=== PATIENT | male | born 1960 | race Caucasian/White ===

== ENCOUNTER 2016-04-07 02:42 | Inpatient (IN) | payer MEDICARE, OTHER ==
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
[2016-04-07] MEDS ORDERED: HYDROmorphone 2 mg/mL 1mL Vial IVP STA (03:34)
[2016-04-07 04:21] LABS: % EOSINOPHILS 2.1 % (0.0-5.0); % LYMPHOCYTES 9.6 % (20.0-50.0); % MONOCYTES 5.4 % (2.0-10.0); % NEUTROPHILS 82.9 % (40.0-80.0); HEMATOCRIT 36.3 % (39.0-49.0); HEMOGLOBIN 11.9 gm/dL (13.2-17.3); MEAN CORPUSCULAR HEMOGLOBIN 28.5 pg (26.0-30.0); MEAN CORPUSCULAR HGB CONC 32.8 pg (28.0-36.0); MEAN PLATELET VOLUME 7.2 fl; NEUTROPHILE ABSOLUTE 9.1 Th/cmm (1.8-8.0); PLATELET COUNT 554 Th/cmm (150-400); RED BLOOD COUNT 4.17 Mil/cmm (4.30-5.70); RED CELL DISTRIBUTION WIDTH 15.4 % (11.5-20.0); WHITE BLOOD COUNT 10.9 Th/cmm (4.8-10.8)
[2016-04-07] MEDS ORDERED: HYDROmorphone 2 mg/mL 1mL Vial ONE (04:44)
[2016-04-07 04:46] LABS: INR 1.08 (0.5-1.4); PROTHROMBIN TIME (TEST) 10.8 SECONDS (9.5-11.5)
[2016-04-07 05:24] LABS: ALB/GLOB RATIO 0.7 (1.0-1.8); ALKALINE PHOSPHATASE 133 U/L (34-104); ANION GAP 11.6 (7.0-16.0); BILIRUBIN,TOTAL 0.3 mg/dL (0.3-1.0); BUN - UREA NITROGEN 17 mg/dL (7-25); BUN/CREATININE RATIO 21.3; CALCIUM SERUM 8.9 mg/dL (8.6-10.3); CARBON DIOXIDE 16.6 mEq/L (21.0-31.0); CHLORIDE 107 mEq/L (98-107); CREATININE - SERUM 0.8 mg/dL (0.7-1.3); GLUCOSE 188 mg/dL (70-105); POTASSIUM SERUM 4.2 mEq/L (3.5-5.1); SGOT 13 U/L (13-39); SGPT/ALT 7 U/L (7-52); SODIUM SERUM 131 mEq/L (136-145)
[2016-04-07 06:16] LABS: URINE COLOR YELLOW; URINE GLUCOSE (UA) NEGATIVE (NEGATIVE)
[2016-04-07 06:17] LABS: URINE BILIRUBIN NEGATIVE (NEGATIVE); URINE BLOOD NEGATIVE (NEGATIVE); URINE KETONE NEGATIVE (NEGATIVE); URINE PH >=9.0; URINE PROTEIN 100 mg/dL (NEGATIVE)
[2016-04-07 06:18] LABS: URINE BACTERIA MANY /hpf (NONE SEEN); URINE EPITHELIAL CELLS RARE /lpf (FEW); URINE RBC NONE SEEN /hpf (0-5); URINE WBC 0-2 /hpf (0-5)
[2016-04-07] MEDS ORDERED: Levofloxacin 500mg/100mL 500 MG in Premix Fluid 1 BAG IV ONE (07:03)
--- NOTE | 2016-04-07 08:07 | Admit Criteria Form ---
Admit Criteria Forms - Admit Criteria Diagnosis: BACK PAIN Clinical Indications for Admission to Inpatient Care (Place 'X' for any and all applicable criteria): Admission is indicated for ANY ONE of the following (1)(2)(3)(4)(5)(6): [X]I. Inpatient admission required rather than observation care (Also use Back Pain: Observation Care as appropriate) because of ANY ONE of the following [ ]a) Severe pain requiring acute inpatient management [ ]b) Immediate inpatient surgery [X]c) Other condition, treatment or monitoring requiring inpatient admission [ ]II. Spine fracture with significant damage or threat of damage to vertebral column or spinal cord [ ]III. Progressive or severe neurologic deficit [ ]IV. Suspected spinal infection (e.g., epidural abscess, vertebral osteomyelitis)(10) [ ]V. Suspected cause requires inpatient treatment (eg, aortic dissection) [ ]. Cauda equina syndrome as indicated by ANY ONE of the following (9): [ ]a) Bowel dysfunction [ ]b) Bladder dysfunction [ ]c) Saddle anesthesia [ ]d) Neurologic abnormality suggesting cauda equina impingement Extended stay beyond goal length of stay may be needed for (3)(25): [ ]a) Spinal cord compression from stenosis, disk, or tumor (8)(9) [ ]b) Traumatic or pathologic vertebral fracture (33) [ ]c) Vertebral infection(10) [ ]d) Severe pain that is difficult to control [ ]e) Older patients(65 years or older) The original [employer] content created by [employer] has been revised. The portions of the content which have been revised are identified through the use of italic text or in bold, and [facility] has neither reviewed nor approved the modified material. All other unmodified content is copyright [employer]. Please see references footnoted in the original [facility] edition 2016
[2016-04-07] MEDS ORDERED: INSULIN HUMAN REGULAR 100 UNITS/ML UNIT SUBQ PRN (08:32)
[2016-04-07] MEDS ORDERED: Lactulose 10 Gm/15 mL 30mL UDC PO SCH (09:00)
--- NOTE | 2016-04-07 09:25 | Diagnostic Imaging Report ---
Left lower extremity Doppler venous ultrasound exam HISTORY: Pain/swelling Sonographic sector images were obtained through the deep venous systems of the left leg. Associated Doppler data was obtained. The exam demonstrates patency of the common femoral, superficial femoral, popliteal, and posterior tibial veins. Specifically, no thrombus is seen. There are normal compressibility and augmentation responses. IMPRESSION: Negative exam for deep vein thrombophlebitis.
[2016-04-07] MEDS: HYDROmorphone 2 mg/mL 1mL Vial IVP PRN ×3 (09:50→17:35)
[2016-04-07] MEDS: Magnesium Chloride EC 64mg Tab PO SCH ×3 (09:53→20:47)
[2016-04-07] MEDS: Ferrous Sulfate 325 MG TAB PO SCH ×3 (09:54→20:47)
[2016-04-07] MEDS: Pantoprazole 40 mg EC Tab PO SCH (09:57)
[2016-04-07] MEDS: INSULIN ASPART SLIDING SCALE 100 UNITS/ML UNIT SUBQ SCH ×3 (12:04→23:28)
[2016-04-07] MEDS ORDERED: Cefepime 1 GM in Sodium Chloride 0.9% 50 ML IV SCH (13:00)
--- NOTE | 2016-04-07 13:16 | History & Physical ---
PATIENT IDENTIFICATION: A 55-year-old male. CHIEF COMPLAINT: "My back is hurt, I can't handle my pain." HISTORY OF PRESENT ILLNESS: The patient is a 55-year-old male who resides at [facility] has a significant history of small bowel obstruction leading to colostomy, has history of sacral decubitus ulcer along with paraplegia, diabetes, colostomy, hypertension, has been followed by Pain Management MD for his pain, noted to have pain on his lower back, which started by itself and continued to increase to the level that he cannot handle his pain. He also stated that his left leg was swollen and painful. He was sent to Emergency Room where the patient was seen by Emergency Room MD. Workup did reveal the patient has cellulitis of his left upper extremity, associated with urinary tract infection and multiple comorbid conditions. There was also noted to have significant tenderness on the spine noted. Possibilities of osteomyelitis were also suspected. The patient has been advised to be admitted for further treatment. PAST MEDICAL HISTORY: Remarkable for depression, insomnia, small bowel obstruction, status post colostomy, diabetes, hypothyroidism, DJD, paraplegia, sacral decubitus ulcer, obesity. MEDICATIONS: List has been reviewed and reconciled appropriately. ALLERGIES: The patient is not allergic to medications. SOCIAL HISTORY: He lives in a shelter. The patient has a history of smoking cigarettes. Denies any alcohol abuse. Denies any street drug use. The patient is on prescription medications. REVIEW OF SYSTEMS: The patient denies any headache, blurred vision, double vision, dysphagia, odynophagia, runny nose, stuffy nose, fever, chills, cough, chest pain, shortness of breath, palpitation, dizziness, nausea, vomiting, diarrhea. Denies any hematemesis, hematuria, hematochezia, or melena. PHYSICAL EXAMINATION: GENERAL: The patient is alert, awake, oriented with significant amount of pain. VITAL SIGNS: Temperature 99, pulse is 70, respiratory rate 16, blood pressure 144/70. SKIN: Warm to touch. HEENT: Normocephalic, atraumatic. Extraocular muscles are intact. Tongue was pink and coated. NECK: Supple, no JVD. No hepatojugular reflux. No lymphadenopathy, thyromegaly or carotid bruit. HEART: Both heart sounds are regular. No S3, no S4, no murmur. CHEST: Lung equal in expansion, no wheezing, no crackles. ABDOMEN: Soft. Surgical scar on the abdomen noted with well functioning colostomy. Bowel sounds are present. EXTREMITIES: Remarkable for wasting of the muscles of both lower extremities with significant ____ paraplegia noted. There is induration and increased temperature and increased warm on the lateral aspect of the left lower extremity noted with some calf tenderness also noted. BACK: Remarkable for unstageable sacral coccygeal decubitus ulcer along with significant tenderness at L3-L4 spine area noted. NEUROLOGIC: Remarkable for lower extremity weakness. AVAILABLE DIAGNOSTIC DATA: Performed in the Emergency Room has been reviewed. Total time reviewing the record is approximately 7 minutes. CLINICAL IMPRESSION: 1. Intractable back pain with significant amount of tenderness at L3-L4 area. CT scan of the lumbar spine is remarkable for mild chronic central compression deformities at L3-L4 area with no evidence of acute fracture or malalignment, suspect the patient needs to rule out for osteomyelitis in the presence of diabetes being an immunocompromised status associated with unstageable sacral coccygeal decubitus ulcer. 2. Left lower extremity cellulitis. 3. Constipation by CT scan of the lumbar spine, suspect probably secondary to opioid induced. 4. Acute exacerbation of chronic pain syndrome. 5. Diabetes mellitus. 6. Hypertension. 7. Hypothyroidism. 8. Degenerative joint disease. 9. Status post colostomy. 10. History of smoking. PLAN: The patient has been admitted at this time to medical floor. The patient will be placed on IV Zosyn and vancomycin to cover gram positive and gram negative anaerobes as well as the MRSA and we will proceed with bone scan to rule out osteomyelitis in the presence of tenderness. We will also give adequate pain management. Infectious Disease consultation will be requested. Anti-constipation medication will be given. Appropriate home medicine will be reconciled. Glucoscan a.c. and at bedtime will be ordered with covering the blood sugar with sliding scale NovoLog insulin. Wound care consultation will be requested. Appropriate measures will be done as well. The patient will have general nursing care and followup lab and will follow the consult recommendations. Care plan has been reviewed and discussed with the patient. [facility]# [id number]
[2016-04-07] MEDS: Vancomycin HCl 1.5 GM in Sodium Chloride 0.9% 500 ML IV SCH (13:57)
[2016-04-07] MEDS: Lactulose 10 Gm/15 mL 30mL UDC PO SCH (14:00)
--- NOTE | 2016-04-07 14:24 | Infectious Disease Prog Note ---
Infectious Disease Subjective - Review of Systems Service Date: 04/07/16 Subjective: [id number] Infectious Disease Objective - Results Result Diagrams: 04/07/16 04:00 04/07/16 04:00 Recent Labs: Laboratory Last Values WBC 10.9 Th/cmm (4.8-10.8) H 04/07/16 04:00 RBC 4.17 Mil/cmm (4.30-5.70) L 04/07/16 04:00 Hgb 11.9 gm/dL (13.2-17.3) L 04/07/16 04:00 Hct 36.3 % (39.0-49.0) L 04/07/16 04:00 MCV 87.0 fl (80-99) 04/07/16 04:00 MCH 28.5 pg (26.0-30.0) 04/07/16 04:00 MCHC Differential 32.8 pg (28.0-36.0) 04/07/16 04:00 RDW 15.4 % (11.5-20.0) 04/07/16 04:00 Plt Count 554 Th/cmm (150-400) H 04/07/16 04:00 MPV 7.2 fl 04/07/16 04:00 Neutrophils % 82.9 % (40.0-80.0) H 04/07/16 04:00 Lymphocytes % 9.6 % (20.0-50.0) L 04/07/16 04:00 Monocytes % 5.4 % (2.0-10.0) 04/07/16 04:00 Eosinophils % 2.1 % (0.0-5.0) 04/07/16 04:00 Basophils % 0.0 % (0.0-2.0) 04/07/16 04:00 PT 10.8 SECONDS (9.5-11.5) 04/07/16 04:00 INR 1.08 (0.5-1.4) 04/07/16 04:00 PTT (Actin FS) 23.7 SECONDS (26.0-38.0) L 04/07/16 04:00 D-Dimer 4640 ng/mL (100-400) H 04/07/16 04:00 Sodium 131 mEq/L (136-145) L 04/07/16 04:00 Potassium 4.2 mEq/L (3.5-5.1) 04/07/16 04:00 Chloride 107 mEq/L (98-107) 04/07/16 04:00 Carbon Dioxide 16.6 mEq/L (21.0-31.0) L 04/07/16 04:00 Anion Gap 11.6 (7.0-16.0) 04/07/16 04:00 BUN 17 mg/dL (7-25) 04/07/16 04:00 Creatinine 0.8 mg/dL (0.7-1.3) 04/07/16 04:00 Est GFR ( Amer) > 60.0 ml/min (>90) 04/07/16 04:00 Est GFR (Non-Af Amer) > 60.0 ml/min 04/07/16 04:00 BUN/Creatinine Ratio 21.3 04/07/16 04:00 Glucose 188 mg/dL (70-105) H 04/07/16 04:00 POC Glucose 208 MG/DL (70 - 105) H 04/07/16 12:38 Hemoglobin A1c % 6.9 % (4.0-6.0) H 04/07/16 04:00 Calcium 8.9 mg/dL (8.6-10.3) 04/07/16 04:00 Total Bilirubin 0.3 mg/dL (0.3-1.0) 04/07/16 04:00 AST 13 U/L (13-39) 04/07/16 04:00 ALT 7 U/L (7-52) 04/07/16 04:00 Alkaline Phosphatase 133 U/L (34-104) H 04/07/16 04:00 Total Protein 7.3 gm/dL (6.0-8.3) 04/07/16 04:00 Albumin 3.1 gm/dL (4.2-5.5) L 04/07/16 04:00 Globulin 4.2 gm/dL 04/07/16 04:00 Albumin/Globulin Ratio 0.7 (1.0-1.8) L 04/07/16 04:00 Urine Source CATH 04/07/16 05:10 Urine Color YELLOW 04/07/16 05:10 Urine Clarity CLOUDY (CLEAR) 04/07/16 05:10 Urine pH >=9.0 04/07/16 05:10 Ur Specific [place] 1.015 (1.005-1.030) 04/07/16 05:10 Urine Protein 100 mg/dL (NEGATIVE) H 04/07/16 05:10 Urine Glucose (UA) NEGATIVE mg/dL (NEGATIVE) 04/07/16 05:10 Urine Ketones NEGATIVE mg/dL (NEGATIVE) 04/07/16 05:10 Urine Blood NEGATIVE (NEGATIVE) 04/07/16 05:10 Urine Nitrate POSITIVE (NEGATIVE) H 04/07/16 05:10 Urine Bilirubin NEGATIVE (NEGATIVE) 04/07/16 05:10 Urine Urobilinogen 1.0 E.U./dL (0.2 - 1.0) 04/07/16 05:10 Ur Leukocyte Esterase NEGATIVE (NEGATIVE) 04/07/16 05:10 Urine RBC NONE SEEN /hpf (0-5) 04/07/16 05:10 Urine WBC 0-2 /hpf (0-5) 04/07/16 05:10 Ur Epithelial Cells RARE /lpf (FEW) 04/07/16 05:10 Urine Bacteria MANY /hpf (NONE SEEN) 04/07/16 05:10 - Physical Exam Vitals and I&O: Vital Signs Temp 97.1 F 04/07/16 02:45 Pulse 99 04/07/16 09:54 Resp 18 04/07/16 06:27 BP 118/92 04/07/16 09:54 Pulse Ox 94 04/07/16 06:27 Active Medications: Current Medications Acetaminophen (Tylenol) 650 mg PO Q4HR PRN PRN Reason: Pain or Fever >101 Stop: 06/06/16 08:31 Amlodipine Besylate (Norvasc) 5 mg PO DAILY [facility] Stop: 06/06/16 08:59 Last Admin: 04/07/16 09:54 Dose: 5 mg Ascorbic Acid (Vitamin C) 500 mg PO BID [facility] Stop: 06/06/16 08:59 Last Admin: 04/07/16 09:53 Dose: 500 mg Baclofen (Lioresal) 20 mg PO TID [facility] Stop: 06/06/16 08:59 Last Admin: 04/07/16 13:41 Dose: 20 mg Diphenhydramine HCl (Benadryl) 25 mg PO Q6HR PRN PRN Reason: Itching Stop: 06/06/16 08:31 Ferrous Sulfate (Iron) 325 mg PO TID [facility] Stop: 06/06/16 08:59 Last Admin: 04/07/16 13:41 Dose: 325 mg Gabapentin (Neurontin) 300 mg PO BID [facility] Stop: 06/06/16 08:59 Last Admin: 04/07/16 09:52 Dose: 300 mg Gemfibrozil (Lopid) 600 mg PO BID [facility] Stop: 06/06/16 08:59 Last Admin: 04/07/16 09:53 Dose: 600 mg Hydralazine HCl (Apresoline) 50 mg PO Q6HR PRN PRN Reason: BP MAINTENANCE DURING HD ONLY Stop: 06/06/16 08:31 Hydromorphone HCl (Dilaudid) 2 mg IVP Q4HR PRN PRN Reason: Severe pain Stop: 06/06/16 09:24 Last Admin: 04/07/16 13:39 Dose: 2 mg Piperacillin Sod/Tazobactam (Sod 4.5 gm/ Sodium Chloride) 100 mls @ 100 mls/hr IV Q6HR [facility] Stop: 06/06/16 11:59 Last Admin: 04/07/16 12:07 Dose: 100 mls/hr Vancomycin HCl 1.5 gm/ Sodium (Chloride) 500 mls @ 250 mls/hr IV Q12H [facility] Stop: 06/06/16 13:59 Last Admin: 04/07/16 13:57 Dose: 250 mls/hr Insulin Aspart (Novolog Insulin Sliding Scale) 0 units SUBQ ACHS [facility] PRN Reason: Protocol Stop: 06/06/16 11:29 Last Admin: 04/07/16 12:04 Dose: Not Given Lactulose (Cephulac) 30 gm PO TID [facility] Stop: 06/06/16 13:59 Lisinopril (Zestril) 10 mg PO DAILY [facility] Stop: 06/06/16 08:59 Last Admin: 04/07/16 09:53 Dose: 10 mg Magnesium Chloride (Slow-Mag) 2 ect PO TID [facility] Stop: 06/06/16 08:59 Last Admin: 04/07/16 13:41 Dose: 2 ect Metformin HCl (Glucophage) 1,000 mg PO BID [facility] Stop: 06/06/16 08:59 Last Admin: 04/07/16 09:53 Dose: 1,000 mg Mirtazapine (Remeron) 15 mg PO HS [facility] PRN Reason: Protocol Stop: 06/06/16 20:59 Miscellaneous (Vancomycin Iv Per Pharmacy) 1 ea [facility] PRN PRN PRN Reason: PROTOCOL Stop: 06/06/16 08:29 Miscellaneous (Ramelteon [Rozerem]) 8 mg PO HS [facility] Stop: 06/06/16 20:59 Ondansetron HCl (Zofran Odt) 4 mg PO Q6HR PRN PRN Reason: Nausea / Vomiting Stop: 06/06/16 08:31 Oxycodone HCl (Oxycontin) 20 mg PO TID [facility] Stop: 06/06/16 08:59 Last Admin: 04/07/16 09:50 Dose: Not Given Pantoprazole Sodium (Protonix) 40 mg PO QDAC [facility] Stop: 06/06/16 08:59 Last Admin: 04/07/16 09:57 Dose: 40 mg Senna (Senna) 8.6 mg PO DAILY [facility] Stop: 06/06/16 08:59 Last Admin: 04/07/16 09:53 Dose: 8.6 mg Zinc Sulfate (Zinc Sulfate) 220 mg PO DAILY [facility] Stop: 06/06/16 08:59 Last Admin: 04/07/16 09:53 Dose: 220 mg
--- NOTE | 2016-04-07 16:32 | Diagnostic Imaging Report ---
CT scan lumbar spine HISTORY: Pain Exam demonstrates deformity associated with findings consistent with partial sacral resection. Chronic/sclerotic changes noted about the margins of the residual sacrum. Skin thickening deformity noted over the sacrum. Possible cutaneous exposure of the spinous process of L5. No abnormal fluid collections seen within the soft tissues adjacent to the sacrum. Compression involves the bodies of L3 and 4. Changes appear chronic. IMPRESSION: 1. Extensive deformity associated findings consistent with partial resection of the sacrum. Extensive sclerotic changes noted about the bony margins. 2. Overlying skin deformity and thickening with questionable partial cutaneous exposure of the spinous process of L5. 3. Degenerative changes within the visualized lumbar spine along with partial compression involving the bodies of L3 and 4
[2016-04-07] MEDS ORDERED: RAMELTEON 8 MG PO SCH (21:00)
[2016-04-08] MEDS: HYDROmorphone 2 mg/mL 1mL Vial IVP PRN ×3 (00:35→17:54)
[2016-04-08] MEDS: Vancomycin HCl 1.5 GM in Sodium Chloride 0.9% 500 ML IV SCH ×2 (02:15→13:42)
--- NOTE | 2016-04-08 03:09 | Consultation ---
REFERRING PHYSICIAN: Dr. Mihir Leo M.D. REASON FOR CONSULTATION: Infected decubitus ulcers draining foul smelling pus, suspect osteomyelitis. HISTORY OF PRESENT ILLNESS: The patient is a 55-year-old male with a past medical history of paraplegia, diabetes mellitus type 2, colostomy, hypertension, developed a severe back pain, which he could not handle. The patient had multiple debridements performed in the sacral area and has diverting colostomy performed in the past. Sacral wound is draining foul smelling pus. On initial evaluation, the patient's temperature was 97.1 degree Fahrenheit, pulse is 92, respirations 20, blood pressure 116/76 and WBC count was 10,900. ID consult was called for further antibiotic management. Meanwhile, the patient was already started on vancomycin and Zosyn. ALLERGIES: NKDA. MEDICATIONS: See medication reconciliation sheet. Antibiotic barnes, the patient is on vancomycin and Zosyn. PAST MEDICAL HISTORY: Includes as mentioned above paraplegia, depression, insomnia, small-bowel obstruction, colostomy, diabetes mellitus, hypothyroidism, DJD, sacral decubitus ulcer, obesity. SOCIAL HISTORY: The patient lives at retirement. The patient has history of smoking cigarettes. He denies alcohol or street drug use. REVIEW OF SYSTEMS: GENERAL: The patient denies any fever or chills. The patient denies any generalized weakness. HEENT: The patient denies any diplopia or photophobia, sore throat or congestion. RESPIRATORY: The patient has cough, but no shortness of breath. CARDIOVASCULAR: No chest pain or palpitation. GASTROINTESTINAL: The patient has no nausea, no vomiting, no diarrhea, no constipation. GENITOURINARY: No dysuria. NEUROLOGICAL: No headache, no dizziness, no focal weakness. MUSCULOSKELETAL: The patient has severe intolerable back pain. The patient also complains of left lower extremity cellulitis, pain and swelling. SKIN: The patient has chronic nonhealing wound in the back. PHYSICAL EXAMINATION: VITAL SIGNS: Currently shows temperature 97.1, pulse 99, respirations 18, blood pressure 118/92. GENERAL: The patient is comfortable lying in the bed, not in acute distress. HEENT: Head is normocephalic, atraumatic. Oral cavity moist, pink tongue. Eyes: Pallor is present, no icterus. Pupils PERRLA, EOMI. NECK: Supple, no JVD, no carotid bruit. Trachea in midline. CHEST: Bilateral vesicular sound. No crackles. No wheezing. HEART: S1, S2 within normal limits. Regular rhythm. No murmur, no gallop. ABDOMEN: Soft, nontender, nondistended. Bowel sounds present. The patient has colostomy on the left lower quadrant. EXTREMITIES: No cyanosis, no clubbing. The patient has swollen right lower extremity with ulcer. NEUROLOGIC: Alert, awake, oriented x 3. The patient has paraplegia. SKIN: The patient has sacral wound, large in size with wound draining foul smelling pus. There is surrounding erythema and multiple eschars. LABORATORY DATA: Current labs shows WBC count was 10,900, hemoglobin 11.9, hematocrit 36.3, platelets of 554,000, neutrophils 83%. Sodium is 131, potassium 4.2, chloride 107, bicarb is 16.6, BUN is 17, creatinine 0.8, glucose is ____. Urinalysis showed positive nitrite, many bacteria, wbc's 0-2. IMPRESSION: 1. Sacral wound nonhealing, draining pus, likely sinus tract formation. As patient has severe back pain, there is a likelihood that infection has reached to the bone causing osteomyelitis. 2. Paraplegia. 3. Left leg cellulitis. 4. Bacteriuria colonization. 5. Diabetes mellitus type 2. 6. Hypothyroidism. 7. Colostomy. 8. Degenerative joint disease. 9. Paraplegia. 10. Depression. RECOMMENDATIONS: I agree with vancomycin and Zosyn. Surgical consultation for debridement and check ESR, CRP and three phase bone scan. Thank you, Dr. Leo for involving me in taking care of this patient. JOB# [id number]
[2016-04-08] MEDS: Lactulose 10 Gm/15 mL 30mL UDC PO SCH ×4 (05:30→21:16)
[2016-04-08 07:06] LABS: HEMOGLOBIN 10.9 gm/dL (13.2-17.3); MEAN CELL VOLUME 88.8 fl (80-99); MEAN CORPUSCULAR HEMOGLOBIN 29.3 pg (26.0-30.0); PLATELET COUNT 556 Th/cmm (150-400); RED BLOOD COUNT 3.72 Mil/cmm (4.30-5.70)
[2016-04-08 07:11] LABS: WHITE BLOOD COUNT 8.7 Th/cmm (4.8-10.8)
[2016-04-08 07:19] LABS: ALB/GLOB RATIO 0.6 (1.0-1.8); ALKALINE PHOSPHATASE 116 U/L (34-104); ANION GAP 14.7 (7.0-16.0); BILIRUBIN,TOTAL 0.3 mg/dL (0.3-1.0); BUN - UREA NITROGEN 24 mg/dL (7-25); CARBON DIOXIDE 15.7 mEq/L (21.0-31.0); CHLORIDE 109 mEq/L (98-107); GLUCOSE 125 mg/dL (70-105); POTASSIUM SERUM 4.4 mEq/L (3.5-5.1); SGOT 10 U/L (13-39); SGPT/ALT 6 U/L (7-52); SODIUM SERUM 135 mEq/L (136-145)
[2016-04-08] MEDS: INSULIN ASPART SLIDING SCALE 100 UNITS/ML UNIT SUBQ SCH ×3 (07:53→16:32)
[2016-04-08] MEDS: Pantoprazole 40 mg EC Tab PO SCH (07:54)
[2016-04-08 09:43] LABS: BAND NEUTROPHILE 4 % (0-10); EOSINOPHIL 2 % (0-5); METAMYELOCYTE 3 % (0-0); NEUTROPHILS 83 % (40-80); TOTAL CELLS COUNTED 100
[2016-04-08] MEDS: Ferrous Sulfate 325 MG TAB PO SCH ×3 (09:43→21:16)
[2016-04-08 09:44] LABS: PLATELET ESTIMATE INCREASED PLATELETS (NORMAL); PLATELET MORPHOLOGY PLATELET CLUMPS SEEN (NORMAL)
[2016-04-08] MEDS: Magnesium Chloride EC 64mg Tab PO SCH ×3 (09:48→21:16)
[2016-04-08] MEDS: Venelex 60gm Tube TP SCH (09:49)
--- NOTE | 2016-04-08 12:47 | Diagnostic Imaging Report ---
Nuclear medicine triple phase bone scan History: Pain rule out osteomyelitis Comparison: None Technique/procedure: 20.6 mCi of technetium labeled MDP was administered intravenously and flow, blood pool, and delayed images of bilateral lower kidneys were obtained. Findings: Exam is severely limited due to patient's medical condition. Flow images demonstrate nonspecific areas of uptake with asymmetric left renal uptake. Blood pool images also demonstrate asymmetric left renal uptake and uptake seen along the proximal right femoral region. Delayed images demonstrate uptake along the left knee joint and bilateral foot regions. Additional nonspecific areas of uptake within the pelvis identified. IMPRESSION: Severely limited exam due to patient's medical condition demonstrating nonspecific areas of uptake as detailed above possibly due to degenerative etiology. If there is clinical concern for osteomyelitis, MRI in the specific region of concern is recommended for further assessment. Asymmetric increased left renal uptake in relation to the right. Correlation should be made with clinical findings and possible short-term follow-up renal ultrasound.
--- NOTE | 2016-04-08 15:18 | Infectious Disease Prog Note ---
Infectious Disease Subjective - Review of Systems Service Date: 04/08/16 Subjective: There is no new change, there is no fever. Infectious Disease Objective - Results Result Diagrams: 04/08/16 06:47 04/08/16 06:47 Recent Labs: Laboratory Last Values WBC 8.7 Th/cmm (4.8-10.8) D 04/08/16 06:47 RBC 3.72 Mil/cmm (4.30-5.70) L 04/08/16 06:47 Hgb 10.9 gm/dL (13.2-17.3) L 04/08/16 06:47 Hct 33.0 % (39.0-49.0) L 04/08/16 06:47 MCV 88.8 fl (80-99) 04/08/16 06:47 MCH 29.3 pg (26.0-30.0) 04/08/16 06:47 MCHC Differential 33.0 pg (28.0-36.0) 04/08/16 06:47 RDW 16.0 % (11.5-20.0) 04/08/16 06:47 Plt Count 556 Th/cmm (150-400) H 04/08/16 06:47 MPV 7.0 fl 04/08/16 06:47 Neutrophils % 82.9 % (40.0-80.0) H 04/07/16 04:00 Band Neutrophils % 4 % (0-10) 04/08/16 06:47 Lymphocytes % 9.6 % (20.0-50.0) L 04/07/16 04:00 Monocytes % 5.4 % (2.0-10.0) 04/07/16 04:00 Eosinophils % 2.1 % (0.0-5.0) 04/07/16 04:00 Basophils % 0.0 % (0.0-2.0) 04/07/16 04:00 Neutrophils (Manual) 83 % (40-80) H 04/08/16 06:47 Lymphocytes 5 % (20-50) L 04/08/16 06:47 Monocytes 3 % (2-10) 04/08/16 06:47 Eosinophils 2 % (0-5) 04/08/16 06:47 Metamyelocytes 3 % (0-0) H 04/08/16 06:47 Platelet Estimate INCREASED PLATELETS (NORMAL) 04/08/16 06:47 Platelet Morphology PLATELET CLUMPS SEEN (NORMAL) 04/08/16 06:47 RBC Morph Micro Appear NORMAL (NORMAL) 04/08/16 06:47 PT 10.8 SECONDS (9.5-11.5) 04/07/16 04:00 INR 1.08 (0.5-1.4) 04/07/16 04:00 PTT (Actin FS) 23.7 SECONDS (26.0-38.0) L 04/07/16 04:00 D-Dimer 4640 ng/mL (100-400) H 04/07/16 04:00 Sodium 135 mEq/L (136-145) L 04/08/16 06:47 Potassium 4.4 mEq/L (3.5-5.1) 04/08/16 06:47 Chloride 109 mEq/L (98-107) H 04/08/16 06:47 Carbon Dioxide 15.7 mEq/L (21.0-31.0) L 04/08/16 06:47 Anion Gap 14.7 (7.0-16.0) 04/08/16 06:47 BUN 24 mg/dL (7-25) 04/08/16 06:47 Creatinine 1.0 mg/dL (0.7-1.3) 04/08/16 06:47 Est GFR ( Amer) > 60.0 ml/min (>90) 04/08/16 06:47 Est GFR (Non-Af Amer) > 60.0 ml/min 04/08/16 06:47 BUN/Creatinine Ratio 24.0 04/08/16 06:47 Glucose 125 mg/dL (70-105) H 04/08/16 06:47 POC Glucose 95 MG/DL (70 - 105) 04/07/16 17:08 Hemoglobin A1c % 6.9 % (4.0-6.0) H 04/07/16 04:00 Calcium 9.0 mg/dL (8.6-10.3) 04/08/16 06:47 Total Bilirubin 0.3 mg/dL (0.3-1.0) 04/08/16 06:47 AST 10 U/L (13-39) L 04/08/16 06:47 ALT 6 U/L (7-52) L 04/08/16 06:47 Alkaline Phosphatase 116 U/L (34-104) H 04/08/16 06:47 Total Protein 7.2 gm/dL (6.0-8.3) 04/08/16 06:47 Albumin 2.8 gm/dL (4.2-5.5) L 04/08/16 06:47 Globulin 4.4 gm/dL 04/08/16 06:47 Albumin/Globulin Ratio 0.6 (1.0-1.8) L 04/08/16 06:47 Urine Source CATH 04/07/16 05:10 Urine Color YELLOW 04/07/16 05:10 Urine Clarity CLOUDY (CLEAR) 04/07/16 05:10 Urine pH >=9.0 04/07/16 05:10 Ur Specific [place] 1.015 (1.005-1.030) 04/07/16 05:10 Urine Protein 100 mg/dL (NEGATIVE) H 04/07/16 05:10 Urine Glucose (UA) NEGATIVE mg/dL (NEGATIVE) 04/07/16 05:10 Urine Ketones NEGATIVE mg/dL (NEGATIVE) 04/07/16 05:10 Urine Blood NEGATIVE (NEGATIVE) 04/07/16 05:10 Urine Nitrate POSITIVE (NEGATIVE) H 04/07/16 05:10 Urine Bilirubin NEGATIVE (NEGATIVE) 04/07/16 05:10 Urine Urobilinogen 1.0 E.U./dL (0.2 - 1.0) 04/07/16 05:10 Ur Leukocyte Esterase NEGATIVE (NEGATIVE) 04/07/16 05:10 Urine RBC NONE SEEN /hpf (0-5) 04/07/16 05:10 Urine WBC 0-2 /hpf (0-5) 04/07/16 05:10 Ur Epithelial Cells RARE /lpf (FEW) 04/07/16 05:10 Urine Bacteria MANY /hpf (NONE SEEN) 04/07/16 05:10 Vancomycin Trough 28.8 ug/mL (10-20) H 04/08/16 13:00 - Physical Exam Vitals and I&O: Vital Signs Temp 97.4 F 04/08/16 11:24 Pulse 80 04/08/16 11:24 Resp 19 04/08/16 11:24 BP 99/55 04/08/16 11:24 Pulse Ox 95 04/08/16 11:24 Intake & Output 04/07/16 04/08/16 04/08/16 18:59 06:59 18:59 Intake Total 600 800 200 Balance 600 800 200 Intake: Intake, IV Amount 600 600 200 Piperacillin Sodium/ 100 100 200 Tazobact 4.5 gm In Sodium Chloride 0.9% 100 ml @ 100 mls/hr IV Q6HR [facility] Rx #:[id number] Vancomycin HCl 1.5 gm In 500 500 Sodium Chloride 0.9% 500 ml @ 250 mls/hr IV Q12H [facility] Rx#:[id number] Oral 200 Other: Stool Characteristics Soft Soft Active Medications: Current Medications Acetaminophen (Tylenol) 650 mg PO Q4HR PRN PRN Reason: Pain or Fever >101 Stop: 06/06/16 08:31 Amlodipine Besylate (Norvasc) 5 mg PO DAILY [facility] Stop: 06/06/16 08:59 Last Admin: 04/08/16 09:49 Dose: Not Given Ascorbic Acid (Vitamin C) 500 mg PO BID [facility] Stop: 06/06/16 08:59 Last Admin: 04/08/16 09:44 Dose: 500 mg Baclofen (Lioresal) 20 mg PO TID [facility] Stop: 06/06/16 08:59 Last Admin: 04/08/16 13:41 Dose: 20 mg Diphenhydramine HCl (Benadryl) 25 mg PO Q6HR PRN PRN Reason: Itching Stop: 06/06/16 08:31 Ferrous Sulfate (Iron) 325 mg PO TID [facility] Stop: 06/06/16 08:59 Last Admin: 04/08/16 13:41 Dose: 325 mg Gabapentin (Neurontin) 300 mg PO BID [facility] Stop: 06/06/16 08:59 Last Admin: 04/08/16 09:43 Dose: 300 mg Gemfibrozil (Lopid) 600 mg PO BID [facility] Stop: 06/06/16 08:59 Last Admin: 04/08/16 09:43 Dose: 600 mg Hydralazine HCl (Apresoline) 50 mg PO Q6HR PRN PRN Reason: SBP >160 DURING HD ONLY Stop: 06/06/16 08:31 Hydromorphone HCl (Dilaudid) 2 mg IVP Q4HR PRN PRN Reason: Severe pain Stop: 06/06/16 09:24 Last Admin: 04/08/16 10:33 Dose: 2 mg Piperacillin Sod/Tazobactam (Sod 4.5 gm/ Sodium Chloride) 100 mls @ 100 mls/hr IV Q6HR [facility] Stop: 06/06/16 11:59 Last Infusion: 04/08/16 14:04 Dose: Infused Vancomycin HCl 1.5 gm/ Sodium (Chloride) 500 mls @ 250 mls/hr IV Q24H [facility] Stop: 06/08/16 08:59 Insulin Aspart (Novolog Insulin Sliding Scale) 0 units SUBQ ACHS [facility] PRN Reason: Protocol Stop: 06/06/16 11:29 Last Admin: 04/08/16 12:32 Dose: Not Given Lactulose (Cephulac) 30 gm PO TID [facility] Stop: 06/06/16 13:59 Last Admin: 04/08/16 13:42 Dose: Not Given Lisinopril (Zestril) 10 mg PO DAILY [facility] Stop: 06/06/16 08:59 Last Admin: 04/08/16 09:50 Dose: Not Given Magnesium Chloride (Slow-Mag) 2 ect PO TID [facility] Stop: 06/06/16 08:59 Last Admin: 04/08/16 13:41 Dose: 2 ect Metformin HCl (Glucophage) 1,000 mg PO BID [facility] Stop: 06/06/16 08:59 Last Admin: 04/08/16 09:43 Dose: 1,000 mg Mirtazapine (Remeron) 15 mg PO HS [facility] PRN Reason: Protocol Stop: 06/06/16 20:59 Miscellaneous (Vancomycin Iv Per Pharmacy) 1 ea [facility] PRN PRN PRN Reason: PROTOCOL Stop: 06/06/16 08:29 Miscellaneous (Ramelteon [Rozerem]) 8 mg PO HS [facility] Stop: 06/06/16 20:59 Ondansetron HCl (Zofran Odt) 4 mg PO Q6HR PRN PRN Reason: Nausea / Vomiting Stop: 06/06/16 08:31 Last Admin: 04/08/16 12:40 Dose: 4 mg Oxycodone HCl (Oxycontin) 20 mg PO TID [facility] Stop: 06/06/16 08:59 Last Admin: 04/08/16 13:43 Dose: Not Given Pantoprazole Sodium (Protonix) 40 mg PO QDAC [facility] Stop: 06/06/16 08:59 Last Admin: 04/08/16 07:54 Dose: Not Given Senna (Senna) 8.6 mg PO DAILY [facility] Stop: 06/06/16 08:59 Last Admin: 04/08/16 09:44 Dose: 8.6 mg Zinc Sulfate (Zinc Sulfate) 220 mg PO DAILY [facility] Stop: 06/06/16 08:59 Last Admin: 04/08/16 09:43 Dose: 220 mg General: no acute distress, well developed, well nourished HEENT: atraumatic, normocephalic, PERRLA, EOMI Neck: supple, no thyromegaly, no lymphadenopathy Cardiovascular: S1S2, regular Lungs: clear to auscultation bilaterally, clear to percussion Abdomen: soft, other (colostomy.), no tender, no distended Extremities: no cyanosis, no clubbing, no edema, no lines Neurological: awake, alert, oriented, CN 2-12 intact Skin: other (large sacral wound with surgical cscars.) Infectious Disease Assmt/Plan - Assessment Assessment: 1. chronic nonhealing wound of sacral area with infection. suspect osteomyelitis. 2. Praplegia. 3. Left leg cellulitis. 4. DM2 5. HTN. - Plan Plan: Continue vanco IV and zosyn, Check ESR and CRP. Wound care.
[2016-04-09] MEDS: HYDROmorphone 2 mg/mL 1mL Vial IVP PRN ×4 (00:05→18:04)
[2016-04-09] MEDS: INSULIN ASPART SLIDING SCALE 100 UNITS/ML UNIT SUBQ SCH ×4 (02:42→21:28)
[2016-04-09] MEDS ORDERED: Midazolam 1mg/ml 2 ml vial IV ONE (08:36)
[2016-04-09] MEDS ORDERED: Meperidine 25 mg/mL 1mL Syr IVP PRN (08:51)
[2016-04-09] MEDS ORDERED: Lactated Ringer 1,000 ML IV SCH ×2 (09:00)
[2016-04-09] MEDS: Vancomycin HCl 1.5 GM in Sodium Chloride 0.9% 500 ML IV SCH (09:06)
[2016-04-09] MEDS: Ferrous Sulfate 325 MG TAB PO SCH ×3 (09:55→21:21)
[2016-04-09] MEDS: Venelex 60gm Tube TP SCH (09:55)
[2016-04-09] MEDS: Lactulose 10 Gm/15 mL 30mL UDC PO SCH ×3 (09:56→21:30)
[2016-04-09] MEDS: Magnesium Chloride EC 64mg Tab PO SCH ×3 (09:57→21:21)
--- NOTE | 2016-04-09 10:18 | Consultation ---
REFERRING PHYSICIAN: Dr. Leo. REASON FOR CONSULTATION: Sacral decubitus ulcer. Thank you for referring this patient to me. HISTORY OF PRESENT ILLNESS: This is a 55-year-old male with long history of back pain at level of L3-L4 with accompanying sacral decubitus ulcer, which apparently had been worked on in the past including some attempt at closure. Sutures are present in the wound. Has history also of diabetes mellitus, hypertension, hypothyroidism, degenerative joint disease, status post colostomy, history of smoking. The patient has anxiety and depression as well. LABORATORY STUDIES: Show CBC to be essentially normal with low hemoglobin of 10.9. Chemistry also essentially normal. Blood sugar slightly high at 125. Liver function tests also within normal limits. The patient has undergone bone scan to rule out osteomyelitis and there is a concern for increased uptake in the right femoral region and the left knee joint and bilateral foot regions. Additional nonspecific uptake in the pelvis identified as well. The CT of the lumbar spine showed extensive deformity consistent with partial resection of the sacrum extensive sclerotic changes about the bony margins, thickening and questionable partial exposure of spinous process at L5, degenerative changes in the lumbar spine with partial compression at L3 and L4. Lower extremity ultrasound, this was negative for deep vein thrombosis. The consultation deals with a large sacral decubitus ulcer and the patient appears to be coherent and the sister was called over the phone and gave the information that patient is able to sign his own consent. There is marked deformity of the lower extremities and the sacral decubitus ulcer is very extensive with exposure of the sacrum and coccyx overlying with granulation tissue with tunneling superiorly, this is about 10 cm above this exposed region. The colostomy is helpful in the management of the wound infection in this region. RECOMMENDATIONS: Excisional debridement of wound and application of wound VAC. Informed consent discussed with the patient as well as the sister via telephone and if agreed on, we will proceed. JOB# [id number]
--- NOTE | 2016-04-09 12:12 | Operative Report ---
PREOPERATIVE DIAGNOSES: 1. Stage IV sacral decubitus ulcer. 2. Status post colostomy. 3. Degenerative joint disease, lumbar spine, L3, 4 and 5. POSTOPERATIVE DIAGNOSES: 1. Stage IV sacral decubitus ulcer. 2. Status post colostomy. 3. Degenerative joint disease, lumbar spine, L3, 4 and 5. OPERATION DONE: 1. Excisional debridement of sacral decubitus ulcer, size of the ulcer 10 x 15 cm, stage IV. 2. Application of wound VAC. SURGEON: Jessica Crockett MD ANESTHESIA: Spinal. ANESTHESIOLOGIST: Luis Marino M.D. ESTIMATED BLOOD LOSS: 5 mL. DESCRIPTION OF PROCEDURE: The patient was given spinal anesthesia. The ulcer was prepped with Betadine and draped in appropriate manner. Excisional debridement was carried out of areas of tissue overlying ____ generally fairly good growth of the granulation over the sacral bone and the coccyx. Some sutures of previous operation were removed. Following satisfactory hemostasis, the wound was packed with a silver sponge and wound VAC was applied. JOB# [id number]
--- NOTE | 2016-04-09 13:17 | Diagnostic Imaging Report ---
CHEST X-RAY: AP view INDICATION: Cough, preop COMPARISON: None FINDINGS: Exam is limited due to body habitus and low lung volumes. Increased interstitial lung markings are seen particularly of the right lung base. No focal consolidation or effusions. Cardiomegaly is noted. Osseous structures are intact. IMPRESSION: Limited exam due to body habitus and low lung volumes. Increased interstitial lung markings are noted, particularly of the right lung base which may be due to atelectatic changes and low lung volumes. No focal consolidation identified. Please correlate with clinical findings Cardiomegaly.
[2016-04-09 16:47] LABS: % BASOPHILS 0.8 % (0.0-2.0); % EOSINOPHILS 1.9 % (0.0-5.0); % LYMPHOCYTES 6.6 % (20.0-50.0); % MONOCYTES 5.7 % (2.0-10.0); HEMATOCRIT 29.7 % (39.0-49.0); HEMOGLOBIN 9.4 gm/dL (13.2-17.3); MEAN CELL VOLUME 91.2 fl (80-99); MEAN CORPUSCULAR HGB CONC 31.8 pg (28.0-36.0); MEAN PLATELET VOLUME 6.8 fl; NEUTROPHILE ABSOLUTE 6.8 Th/cmm (1.8-8.0); RED BLOOD COUNT 3.26 Mil/cmm (4.30-5.70); RED CELL DISTRIBUTION WIDTH 16.1 % (11.5-20.0); WHITE BLOOD COUNT 8.1 Th/cmm (4.8-10.8)
[2016-04-09 16:50] LABS: PLATELET COUNT 377 Th/cmm (150-400)
[2016-04-09 16:55] LABS: ALB/GLOB RATIO 0.6 (1.0-1.8); ALKALINE PHOSPHATASE 94 U/L (34-104); ANION GAP 10.3 (7.0-16.0); BILIRUBIN,TOTAL 0.2 mg/dL (0.3-1.0); BUN - UREA NITROGEN 24 mg/dL (7-25); BUN/CREATININE RATIO 21.8; CALCIUM SERUM 8.9 mg/dL (8.6-10.3); CARBON DIOXIDE 15.1 mEq/L (21.0-31.0); CHLORIDE 118 mEq/L (98-107); CREATININE - SERUM 1.1 mg/dL (0.7-1.3); GLUCOSE 172 mg/dL (70-105); MAGNESIUM 2.1 mg/dL (1.9-2.7); POTASSIUM SERUM 4.4 mEq/L (3.5-5.1); SGOT 8 U/L (13-39); SGPT/ALT 4 U/L (7-52); SODIUM SERUM 139 mEq/L (136-145)
--- NOTE | 2016-04-09 18:52 | Infectious Disease Prog Note ---
Infectious Disease Subjective - Review of Systems Service Date: 04/09/16 Subjective: Excisional debridement was done by Dr Lopez today. there is no fever. Infectious Disease Objective - Results Result Diagrams: 04/09/16 16:19 04/09/16 16:19 Recent Labs: Laboratory Last Values WBC 8.1 Th/cmm (4.8-10.8) 04/09/16 16:19 RBC 3.26 Mil/cmm (4.30-5.70) L 04/09/16 16:19 Hgb 9.4 gm/dL (13.2-17.3) L 04/09/16 16:19 Hct 29.7 % (39.0-49.0) L 04/09/16 16:19 MCV 91.2 fl (80-99) 04/09/16 16:19 MCH 29.0 pg (26.0-30.0) 04/09/16 16:19 MCHC Differential 31.8 pg (28.0-36.0) 04/09/16 16:19 RDW 16.1 % (11.5-20.0) 04/09/16 16:19 Plt Count 377 Th/cmm (150-400) D 04/09/16 16:19 MPV 6.8 fl 04/09/16 16:19 Neutrophils % 85.0 % (40.0-80.0) H 04/09/16 16:19 Band Neutrophils % 4 % (0-10) 04/08/16 06:47 Lymphocytes % 6.6 % (20.0-50.0) L 04/09/16 16:19 Monocytes % 5.7 % (2.0-10.0) 04/09/16 16:19 Eosinophils % 1.9 % (0.0-5.0) 04/09/16 16:19 Basophils % 0.8 % (0.0-2.0) 04/09/16 16:19 Neutrophils (Manual) 83 % (40-80) H 04/08/16 06:47 Lymphocytes 5 % (20-50) L 04/08/16 06:47 Monocytes 3 % (2-10) 04/08/16 06:47 Eosinophils 2 % (0-5) 04/08/16 06:47 Metamyelocytes 3 % (0-0) H 04/08/16 06:47 Platelet Estimate INCREASED PLATELETS (NORMAL) 04/08/16 06:47 Platelet Morphology PLATELET CLUMPS SEEN (NORMAL) 04/08/16 06:47 RBC Morph Micro Appear NORMAL (NORMAL) 04/08/16 06:47 PT 10.8 SECONDS (9.5-11.5) 04/07/16 04:00 INR 1.08 (0.5-1.4) 04/07/16 04:00 PTT (Actin FS) 23.7 SECONDS (26.0-38.0) L 04/07/16 04:00 D-Dimer 4640 ng/mL (100-400) H 04/07/16 04:00 Sodium 139 mEq/L (136-145) 04/09/16 16:19 Potassium 4.4 mEq/L (3.5-5.1) 04/09/16 16:19 Chloride 118 mEq/L (98-107) H 04/09/16 16:19 Carbon Dioxide 15.1 mEq/L (21.0-31.0) L 04/09/16 16:19 Anion Gap 10.3 (7.0-16.0) 04/09/16 16:19 BUN 24 mg/dL (7-25) 04/09/16 16:19 Creatinine 1.1 mg/dL (0.7-1.3) 04/09/16 16:19 Est GFR ( Amer) > 60.0 ml/min (>90) 04/09/16 16:19 Est GFR (Non-Af Amer) > 60.0 ml/min 04/09/16 16:19 BUN/Creatinine Ratio 21.8 04/09/16 16:19 Glucose 172 mg/dL (70-105) H 04/09/16 16:19 POC Glucose 112 MG/DL (70 - 105) H 04/09/16 11:22 Hemoglobin A1c % 6.9 % (4.0-6.0) H 04/07/16 04:00 Calcium 8.9 mg/dL (8.6-10.3) 04/09/16 16:19 Magnesium 2.1 mg/dL (1.9-2.7) 04/09/16 16:19 Total Bilirubin 0.2 mg/dL (0.3-1.0) L 04/09/16 16:19 AST 8 U/L (13-39) L 04/09/16 16:19 ALT 4 U/L (7-52) L 04/09/16 16:19 Alkaline Phosphatase 94 U/L (34-104) 04/09/16 16:19 Total Protein 6.9 gm/dL (6.0-8.3) 04/09/16 16:19 Albumin 2.5 gm/dL (4.2-5.5) L 04/09/16 16:19 Globulin 4.4 gm/dL 04/09/16 16:19 Albumin/Globulin Ratio 0.6 (1.0-1.8) L 04/09/16 16:19 Urine Source CATH 04/07/16 05:10 Urine Color YELLOW 04/07/16 05:10 Urine Clarity CLOUDY (CLEAR) 04/07/16 05:10 Urine pH >=9.0 04/07/16 05:10 Ur Specific [place] 1.015 (1.005-1.030) 04/07/16 05:10 Urine Protein 100 mg/dL (NEGATIVE) H 04/07/16 05:10 Urine Glucose (UA) NEGATIVE mg/dL (NEGATIVE) 04/07/16 05:10 Urine Ketones NEGATIVE mg/dL (NEGATIVE) 04/07/16 05:10 Urine Blood NEGATIVE (NEGATIVE) 04/07/16 05:10 Urine Nitrate POSITIVE (NEGATIVE) H 04/07/16 05:10 Urine Bilirubin NEGATIVE (NEGATIVE) 04/07/16 05:10 Urine Urobilinogen 1.0 E.U./dL (0.2 - 1.0) 04/07/16 05:10 Ur Leukocyte Esterase NEGATIVE (NEGATIVE) 04/07/16 05:10 Urine RBC NONE SEEN /hpf (0-5) 04/07/16 05:10 Urine WBC 0-2 /hpf (0-5) 04/07/16 05:10 Ur Epithelial Cells RARE /lpf (FEW) 04/07/16 05:10 Urine Bacteria MANY /hpf (NONE SEEN) 04/07/16 05:10 Vancomycin Trough 28.8 ug/mL (10-20) H 04/08/16 13:00 Random Vancomycin 29.8 ug/mL (5.0-40.0) 04/09/16 16:19 - Physical Exam Vitals and I&O: Vital Signs Temp 96.8 F 04/09/16 12:00 Pulse 86 04/09/16 12:00 Resp 18 04/09/16 12:00 BP 153/56 04/09/16 12:00 Pulse Ox 98 04/09/16 12:00 Intake & Output 04/08/16 04/09/16 04/09/16 18:59 06:59 18:59 Intake Total 300 1600 100 Output Total 1600 Balance 300 0 100 Intake: Intake, IV Amount 300 100 100 Piperacillin Sodium/ 300 100 100 Tazobact 4.5 gm In Sodium Chloride 0.9% 100 ml @ 100 mls/hr IV Q6HR [facility] Rx #:[id number] Oral 1500 Output: Urine 1600 Other: Stool Characteristics Soft Soft Active Medications: Current Medications Acetaminophen (Tylenol) 650 mg PO Q4HR PRN PRN Reason: Pain or Fever >101 Stop: 06/06/16 08:31 Amlodipine Besylate (Norvasc) 5 mg PO DAILY [facility] Stop: 06/06/16 08:59 Last Admin: 04/09/16 09:54 Dose: Not Given Ascorbic Acid (Vitamin C) 500 mg PO BID [facility] Stop: 06/06/16 08:59 Last Admin: 04/09/16 17:47 Dose: 500 mg Baclofen (Lioresal) 20 mg PO TID [facility] Stop: 06/06/16 08:59 Last Admin: 04/09/16 13:10 Dose: 20 mg Diphenhydramine HCl (Benadryl) 25 mg PO Q6HR PRN PRN Reason: Itching Stop: 06/06/16 08:31 Ferrous Sulfate (Iron) 325 mg PO TID [facility] Stop: 06/06/16 08:59 Last Admin: 04/09/16 13:10 Dose: 325 mg Gabapentin (Neurontin) 300 mg PO BID [facility] Stop: 06/06/16 08:59 Last Admin: 04/09/16 17:47 Dose: 300 mg Gemfibrozil (Lopid) 600 mg PO BID [facility] Stop: 06/06/16 08:59 Last Admin: 04/09/16 17:47 Dose: 600 mg Hydralazine HCl (Apresoline) 50 mg PO Q6HR PRN PRN Reason: SBP >160 DURING HD ONLY Stop: 06/06/16 08:31 Hydromorphone HCl (Dilaudid) 2 mg IVP Q4HR PRN PRN Reason: Severe pain Stop: 06/06/16 09:24 Last Admin: 04/09/16 18:04 Dose: 2 mg Piperacillin Sod/Tazobactam (Sod 4.5 gm/ Sodium Chloride) 100 mls @ 100 mls/hr IV Q6HR [facility] Stop: 06/06/16 11:59 Last Admin: 04/09/16 17:46 Dose: 100 mls/hr Vancomycin HCl 1.5 gm/ Sodium (Chloride) 500 mls @ 250 mls/hr IV Q24H [facility] Stop: 06/08/16 08:59 Last Admin: 04/09/16 09:06 Dose: 250 mls/hr Insulin Aspart (Novolog Insulin Sliding Scale) 0 units SUBQ ACHS [facility] PRN Reason: Protocol Stop: 06/06/16 11:29 Last Admin: 04/09/16 18:12 Dose: Not Given Lactulose (Cephulac) 30 gm PO TID [facility] Stop: 06/06/16 13:59 Last Admin: 04/09/16 13:14 Dose: Not Given Lisinopril (Zestril) 10 mg PO DAILY [facility] Stop: 06/06/16 08:59 Last Admin: 04/09/16 09:56 Dose: Not Given Magnesium Chloride (Slow-Mag) 2 ect PO TID [facility] Stop: 06/06/16 08:59 Last Admin: 04/09/16 13:10 Dose: 2 ect Metformin HCl (Glucophage) 1,000 mg PO BID [facility] Stop: 06/06/16 08:59 Last Admin: 04/09/16 17:47 Dose: 1,000 mg Mirtazapine (Remeron) [address] [facility] PRN Reason: Protocol Stop: 06/06/16 20:59 Miscellaneous (Vancomycin Iv Per Pharmacy) 1 ea [facility] PRN PRN PRN Reason: PROTOCOL Stop: 06/06/16 08:29 Miscellaneous (Ramelteon [Rozerem]) 8 mg PO HS [facility] Stop: 06/06/16 20:59 Mupirocin (Bactroban Oint) 1 appl TP BID [facility] Stop: 04/13/16 16:59 Last Admin: 04/09/16 17:51 Dose: 1 appl Ondansetron HCl (Zofran Odt) 4 mg PO Q6HR PRN PRN Reason: Nausea / Vomiting Stop: 06/06/16 08:31 Last Admin: 04/08/16 12:40 Dose: 4 mg Oxycodone HCl (Oxycontin) 20 mg PO TID [facility] Stop: 06/06/16 08:59 Last Admin: 04/09/16 13:14 Dose: Not Given Pantoprazole Sodium (Protonix) 40 mg PO QDAC [facility] Stop: 06/06/16 08:59 Last Admin: 04/08/16 07:54 Dose: Not Given Senna (Senna) 8.6 mg PO DAILY [facility] Stop: 06/06/16 08:59 Last Admin: 04/09/16 09:57 Dose: Not Given Zinc Sulfate (Zinc Sulfate) 220 mg PO DAILY [facility] Stop: 06/06/16 08:59 Last Admin: 04/09/16 09:58 Dose: Not Given General: no acute distress, well developed, well nourished HEENT: atraumatic, normocephalic, PERRLA Neck: supple, no thyromegaly Cardiovascular: S1S2, regular Lungs: clear to auscultation bilaterally, clear to percussion Abdomen: soft, no tender, no distended Extremities: no cyanosis, no clubbing, no edema Neurological: awake, alert, oriented Skin: other (sacral wound) Infectious Disease Assmt/Plan - Assessment Assessment: 1. chronic nonhealing wound of sacral area with infection. suspect osteomyelitis. 2. Praplegia. 3. Left leg cellulitis. 4. DM2 5. HTN. - Plan Plan: Continue vanco IV and zosyn. 3 phase Bone scan has nonconclusive Check ESR and CRP, (not done y'day) Wound care.
[2016-04-10] MEDS: HYDROmorphone 2 mg/mL 1mL Vial IVP PRN ×2 (02:27→10:41)
[2016-04-10] MEDS: Pantoprazole 40 mg EC Tab PO SCH (06:33)
[2016-04-10] MEDS: INSULIN ASPART SLIDING SCALE 100 UNITS/ML UNIT SUBQ SCH ×2 (07:04→11:35)
[2016-04-10] MEDS: Venelex 60gm Tube TP SCH (09:09)
[2016-04-10] MEDS: Lactulose 10 Gm/15 mL 30mL UDC PO SCH ×2 (09:09→14:22)
[2016-04-10] MEDS: Ferrous Sulfate 325 MG TAB PO SCH ×2 (09:10→14:13)
[2016-04-10] MEDS: Magnesium Chloride EC 64mg Tab PO SCH ×2 (09:12→14:13)
[2016-04-10] MEDS: Vancomycin HCl 1.5 GM in Sodium Chloride 0.9% 500 ML IV SCH (09:55)
--- NOTE | 2016-04-26 20:41 | Discharge Summary ---
PRINCIPAL DIAGNOSES: 1. 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 2. Left lower extremity cellulitis. 3. Chronic back pain flareup, rule out discitis. 4. Diabetes mellitus. 5. Hypertension. 6. Paraplegia. 7. Chronic pain syndrome. 8. Status post colostomy. 9. Anxiety, depression. 10. Hypothyroidism. 11. Complicated urinary tract infection. BRIEF STATEMENT FOR THE REASON FOR ADMISSION: A 55-year-old male transferred from [facility] to Emergency Room for evaluation of back pain which was worse and his pain was 10/10 in spite of taking narcotic medication. The patient was seen by Emergency Room MD and after being evaluated, the patient was admitted. Please refer to my dictated medical H and P for further information. HOSPITAL COURSE: The patient was noted to have intractable back pain with significant tenderness at L3-L5 area. CT scan of the lumbar spine was remarkable for mild chronic central compression deformities of L3-L4 with no evidence of any acute fracture or malalignment, but evidence of osteomyelitis was suspected. The patient was admitted with broad-spectrum antibiotics and appropriate pain management. The patient was seen by Infectious Disease as well as the general surgeon. It was recommended that patient may get benefit with debridement since the patient's back ulcer was unstageable. ____ debridement was performed. Wound VAC was applied. The patient did undergo bone scan for evaluation of osteomyelitis. Unfortunately, it was limited exam due to medical condition and it was demonstrating nonspecific area of uptake. An MRI was recommended at this time, though the patient has declined to have MRI. It was recommended by Infectious Disease that the patient has stage 4 decubitus ulcer with evidence of osteomyelitis. The patient may get benefit with IV antibiotic for group home. The patient does have wound VAC, which can be managed in a alf. After discussion with the patient and discussion with hospice consultant, it was concluded that the patient should go back to alf with insertion of PICC line and the patient is to get IV Zosyn and vancomycin and continue other medicine that the patient was receiving. The patient was discharged home with continuation of same treatment plan. The patient will be followed by myself and my nurse practitioner. At the time of discharge, all of his meds were reconciliated. JOB# [id number]
== END 2016-04-10 15:58 | DRG 981 ==
LOC: ER 02:42 → MSI 07:57
PROVIDERS: ADMIT Internal Medicine; ATTEND Internal Medicine
PROC: 0QB10ZZ Excision of Sacrum, Open Approach (ICD-10-PCS; principal; 2016-04-09)
DX: L89.154 Pressure ulcer of sacral region, stage 4 (principal); L89.150 Pressure ulcer of sacral region, unstageable; G82.20 Paraplegia, unspecified; L03.116 Cellulitis of left lower limb; N39.0 Urinary tract infection, site not specified; M54.9 Dorsalgia, unspecified; K59.00 Constipation, unspecified; E11.9 Type 2 diabetes mellitus without complications; I10 Essential (primary) hypertension; E03.9 Hypothyroidism, unspecified; M19.90 Unspecified osteoarthritis, unspecified site; F17.210 Nicotine dependence, cigarettes, uncomplicated; E78.5 Hyperlipidemia, unspecified; G89.4 Chronic pain syndrome; F32.9 Major depressive disorder, single episode, unspecified; M47.816 Spondylosis without myelopathy or radiculopathy, lumbar region; Z82.49 Family history of ischemic heart disease and other diseases of the circulatory system; Z93.3 Colostomy status; Z83.3 Family history of diabetes mellitus; Z98.890 Other specified postprocedural states
CPT/HCPCS: 36415-UA; 71010-TC; 72131-TC; 78315-TC; 80053-TC; 80202-TC; 81001-TC; 82948-90; 83036-90; 83735-TC; 85007-TC; 85025-TC; 85027-TC; 85379-TC; 85610-TC; 85652-TC; 86141-TC; 87070-90; 93005; 93971-TC-LT; 96375; A9503; J0692; J1170; J1815; J1956; J2250; J2370; J2543; J3370; J7040; Q0162; Z7610